=== PATIENT | female | born 1975 | race Caucasian/White ===

== ENCOUNTER 2018-11-06 02:24 | Emergency (ER) | payer SELFPAY ==
[~2018-11-06] VITALS: Ht 165.1 cm; Wt 61.2 kg
[~2018-11-06 02:24] MED LIST: COL100 PO; FLO4 PO; LEV500 PO; MOTRIN800 MG PO; TYLENOL325 MG PO
[2018-11-06 02:28] VITALS: Ht 165.1 cm; Wt 61.2 kg
[2018-11-06 05:42] VITALS: BP 109/71
== END 2018-11-06 05:42 | disposition home or self-care (01) ==
LOC: ED 02:24
DX: B34.9 Viral infection, unspecified (principal); Z87.442 Personal history of urinary calculi
CPT/HCPCS: 87804; J1885